=== PATIENT | male | born 1935 | race Caucasian/White ===

== ENCOUNTER → 2018-08-03 10:40 | Outpatient (CLI) | payer MEDICARE, BC ==
--- NOTE | 2018-08-04 11:19 | EC ---
PATIENT:STELLA NORTON DATE OF SERVICE: 08/03/18 SEX: M MEDICAL RECORD: [id number] DATE OF : 35 [facility] AGE OF PATIENT: 83 ADMISSION DATE: 08/03/18 REFERRING PHYSICIAN: INTERPRETING PHYSICIAN: MICHEL BACH MD ECHOCARDIOGRAM REPORT ECHO CHARGES 4 ECHO COMPLETE Date: 08/03/18 CLINICAL DIAGNOSIS: DYSPNEA ECHOCARDIOGRAPHIC MEASUREMENTS (adult normal given) AC root (d.<3.7cm) 2.9 cm LV Septum d (<1.2 cm> 1.8 cm Valve Excursion 1.8 cm LV Septum (systole) 2.0 cm Left Atria (s.<4.0cm> 4.2 cm LVPW d(<1.2cm) 1.9 cm RV (d.<2.3cm) 4.1 cm LVPW (sytole) 2.2 cm LV diastole(<5.6CM) 4.0 cm MV E-F(>70mm/sec) cm LV systole 2.7 cm LVOT Diameter 2.3 cm MV exc.(>10mm) 1.3 cm Est.ejection fraction (50-75%) % DOPPLER: LVIT cm/sec A 46.0 cm/sec E 102 cm/sec LA cm/sec RVSP 19 mmHg LVOT 100 cm/sec AOP1/2T m/s Asc. 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 Bach TAPE# PACS Pericardial Effusion N DATE OF SERVICE: FINDINGS: 1. Left ventricular chamber size is within normal limits. Left ventricular systolic function is normal. Overall ejection fraction estimated at 60%. 2. Left atrium is enlarged about 4.2 cm. Right atrium and right ventricular chamber sizes are as well mildly dilated. 3. Valvular structures have normal structure and motion. 4. Doppler interrogation reveals mild mitral regurgitation, mild tricuspid regurgitation, no other valvular insufficiency or stenosis. Pulmonary systolic ECHOCARDIOGRAM REPORT [id number] STELLA NORTON pressure is normal estimated at 19 mmHg. 5. No evidence of pericardial effusion or left ventricular thrombus. 6. The patient is in atrial fibrillation during the study. TRANSINT:[id number] Voice Confirmation ID: [id number] DOCUMENT ID: [id number] MICHEL BACH MD at 1119 CC: [id number] DICTATION DATE: 08/03/18 1627 PRECIPITATE WASHER: 08/03/18 1814 DEP CLI 08/03/18 [address] [id number] [place] [address]
--- NOTE | 2018-08-04 11:20 | ST ---
PATIENT:STELLA NORTON MEDICAL RECORD: [id number] SEX: M [facility] ORDER #: ADMISSION DATE: 08/03/18 AGE OF PATIENT: 83 REFERRING PHYSICIAN: INTERPRETING PHYSICIAN: MICHEL TELLES MD DATE OF SERVICE: 08/03/2018 PROCEDURE: Nuclear stress test. INDICATION: Shortness of breath, angina, abnormal ECG. He was exercised on standard Lexiscan protocol with 33 mCi of sestamibi injected at peak stress, 11 mmHg used previously for rest images. FINDINGS: Gated SPECT reveals preserved ejection fraction at 70% with good wall motion and thickening and brightening throughout all segments. SPECT imaging Cardiolite was used as myocardial fusion agent. There is homogeneous uptake throughout all segments at rest and stress with no evidence of inducible ischemia or previous infarction. OVERALL IMPRESSION: 1. This is a normal nuclear stress test with no evidence of inducible ischemia or previous infarction. 2. Gated SPECT reveals a preserved ejection fraction at 70%. In this patient with ongoing symptomatology, the current scan does not suggest the presence of hemodynamically significant coronary artery disease. Evaluate noncardiac etiology of chest pain. TRANSINT:[id number] Voice Confirmation ID: [id number] DOCUMENT ID: [id number] MICHEL TELLES MD at 1120 CC: [id number] DICTATION DATE: 08/03/18 1634 RETIREMENT MANAGER: 08/04/18 0022 DEP CLI 08/03/[address] [facility] [address] [place] [address]
== END | disposition home or self-care (01) ==
LOC: D.HCCARDIO 10:40
PROVIDERS: ATTEND Internal Medicine Interventional Cardiology
DX: R06.02 Shortness of breath (principal)